=== PATIENT | female | born 1930 | race Caucasian/White ===

== ENCOUNTER 2016-08-13 00:19 | Emergency (ER) | payer BC, OTHER ==
[~2016-08-13] VITALS: Ht 172.7 cm; Wt 79.0 kg
[2016-08-13] MEDS ORDERED: LASIX40 MG PO (01:41)
[2016-08-13] MEDS ORDERED: IMDUR30 MG PO (01:41)
[2016-08-13] MEDS ORDERED: HYDRALAZINE HCL25 MG PO (01:41)
[2016-08-13] MEDS ORDERED: PRAVASTATIN SOD40 MG PO (01:41)
[2016-08-13] MEDS ORDERED: PLAVIX75 MG PO (01:41)
[2016-08-13 01:42] LABS: ADD MIUA? YES; BILIRUBIN NEGATIVE; BLOOD NEGATIVE; COLOR YELLOW ((YELLOW)); GLUCOSE (STRIP) NEGATIVE; KETONES NEGATIVE; LEUKOCYTES MODERATE; NITRITE POSITIVE; PH, URINE 6.5 (5-8); PROTEIN (STRIP) NEGATIVE; UROBILINOGEN 0.2 MG/DL (0.2-1.0)
[2016-08-13] MEDS ORDERED: LEVO-T100 MCG PO (01:42)
[2016-08-13] MEDS ORDERED: COREG25 M1 PO (01:42)
[2016-08-13] MEDS ORDERED: LEVO-T125 MCG PO (01:43)
[2016-08-13] MEDS ORDERED: CALCIUM 500 +1 EAC4 PO (01:44)
[2016-08-13] MEDS ORDERED: INDERAL LA120 MG PO (01:44)
[2016-08-13] MEDS ORDERED: MONOPRIL HCT PO (01:45)
[2016-08-13] MEDS ORDERED: CARDIZEM CD240 MG PO (01:45)
[2016-08-13] MEDS ORDERED: ARICEPT5 MG PO (01:45)
[2016-08-13] MEDS ORDERED: ASPIRIN81 M2 PO (01:45)
[2016-08-13 02:14] LABS: RED BLOOD CELLS NONE SEEN /HPF (0-5)
[2016-08-13 02:15] LABS: BACTERIA 4+; CASTS NONE SEEN /LPF; CRYSTALS NONE SEEN; EPITHELIAL CELLS RARE; MUCUS NONE SEEN; UCUL ADDED? YES
[2016-08-13] MEDS ORDERED: CIPRO500 MG PO (02:47)
[2016-08-13 03:50] VITALS: BP 140/50
== END 2016-08-13 03:52 | disposition home or self-care (01) ==
LOC: EME 00:19
PROVIDERS: Emergency Medicine
DX: N30.90 Cystitis, unspecified without hematuria (principal); Z91.81 History of falling; R42 Dizziness and giddiness; M79.604 Pain in right leg; F03.90 Unspecified dementia, unspecified severity, without behavioral disturbance, psychotic disturbance, mood disturbance, and anxiety; I10 Essential (primary) hypertension; E78.5 Hyperlipidemia, unspecified; E03.9 Hypothyroidism, unspecified; Z79.02 Long term (current) use of antithrombotics/antiplatelets; Z79.82 Long term (current) use of aspirin
CPT/HCPCS: 70450; 72125; 81003; 87077; 87086; 87186; 93005; 99281; 99284

== ENCOUNTER 2016-08-20 13:13 | Inpatient (IN) | payer BC, OTHER ==
[~2016-08-20] VITALS: Wt 81.9 kg
[~2016-08-20 13:13] MED LIST: ARICEPT5 MG PO; ASPIRIN81 M2 PO; CALCIUM 500 +1 EAC4 PO; CARDIZEM CD240 MG PO; CIPRO500 MG PO; COREG25 M1 PO; HYDRALAZINE HCL25 MG PO; IMDUR30 MG PO; INDERAL LA120 MG PO; LASIX40 MG PO; LEVO-T100 MCG PO; LEVO-T125 MCG PO; MONOPRIL HCT PO; PLAVIX75 MG PO; PRAVASTATIN SOD40 MG PO
[2016-08-20] MEDS ORDERED: HYDRALAZINE HCL25 MG PO (13:35)
[2016-08-20 14:28] LABS: HEMATOCRIT 31.7 % (36.0-46.0); MCH 30.5 PG (29.0-34.0); MCHC 33.4 G/DL (30.0-36.0); MCV 91.4 FL (83-99); MEAN PLAT.VOLUME 9.7 uM^3 (9.5-12.4); PLATELET COUNT 372 K/uL (156-360); RBC DIS.WIDTH-CV 12.4 % (11.8-14.6); RBC DIS.WIDTH-SD 40.7 % (39-53); RED BLOOD COUNT 3.47 M/uL (3.80-5.20); WHITE BLOOD COUNT 11.5 K/uL (4.1-10.2)
[2016-08-20 14:36] LABS: CHLORIDE 94 mEq/L (99-109); POTASSIUM 3.5 mEq/L (3.7-5.4); SODIUM 136 mEq/L (136-147)
[2016-08-20 14:38] LABS: GLUCOSE 111 mg/dL (70-99); INTER. NORMALIZED RATIO 1.1; PROTHROMBIN TIME 11.6 (9.2-11.2); PTT 24.6 (25-32)
[2016-08-20 14:39] LABS: ANION GAP 17 MEQ/L (2-14)
[2016-08-20 14:42] LABS: GFR ESTIMATE (CALCULATED) 22 mL/min/; UREA NITROGEN (BUN) 51 mg/dL (9-23)
[2016-08-20] MEDS ORDERED: CALCIUM 500 +1 EAC4 PO (17:30)
[2016-08-20] MEDS ORDERED: ARICEPT5 MG PO (17:36)
[2016-08-20] MEDS ORDERED: CIPRO500 MG PO (17:37)
[2016-08-20 21:01] VITALS: BP 129/40
[2016-08-20 21:47] VITALS: BP 160/67
[2016-08-20 22:47] VITALS: BP 160/67
[2016-08-21 07:05] LABS: ANION GAP 14 MEQ/L (2-14); CHLORIDE 97 MEQ/L (99-109); POTASSIUM 3.3 MEQ/L (3.7-5.4); SAMPLE HEMOLYSIS CHECK 0; SAMPLE ICTERIC CHECK 0; SAMPLE LIPEMIA CHECK 0; SODIUM 136 MEQ/L (136-147)
[2016-08-21 07:11] LABS: GFR ESTIMATE (CALCULATED) 25 mL/min/; UREA NITROGEN (BUN) 47 mg/dL (9-23)
[2016-08-21 07:28] LABS: HEMATOCRIT 28.3 % (36.0-46.0); MCHC 33.6 G/DL (30.0-36.0); MCV 95.3 FL (83-99); MEAN PLAT.VOLUME 10.9 uM^3 (9.5-12.4); PLATELET COUNT 329 K/uL (156-360); RBC DIS.WIDTH-SD 44.6 % (39-53); RED BLOOD COUNT 2.97 M/uL (3.80-5.20)
[2016-08-21 07:29] VITALS: BP 150/70
[2016-08-21 07:29] LABS: GLUCOSE 80 mg/dL (70-99)
[2016-08-21 15:32] VITALS: BP 163/72
[2016-08-22 07:00] VITALS: BP 150/59
[2016-08-22 07:09] LABS: RED BLOOD COUNT 3.04 M/uL (3.80-5.20); WHITE BLOOD COUNT 7.6 K/uL (4.1-10.2)
[2016-08-22 07:10] LABS: BASOPHIL COUNT 0.1 K/uL (0-0.1); EOSINOPHIL (%) 3.3 % (0-5); EOSINOPHIL COUNT 0.3 K/uL (0-0.3); IMMATURE GRANULOCYTE (%) 0.7 % (0.0-0.7); IMMATURE GRANULOCYTE COUNT 0.1 K/uL; LYMPHOCYTE COUNT 1.1 K/uL (1.0-2.8); MCH 31.6 PG (29.0-34.0); MCHC 33.1 G/DL (30.0-36.0); MCV 95.4 FL (83-99); MEAN PLAT.VOLUME 9.9 uM^3 (9.5-12.4); MONOCYTE (%) 10.1 % (3-12); MONOCYTE COUNT 0.8 K/uL (0-0.8); NEUTROPHIL (%) 70.3 % (45-76); NEUTROPHIL COUNT 5.4 K/uL (1.8-6.4); PLATELET COUNT 335 K/uL (156-360); RBC DIS.WIDTH-CV 13.1 % (11.8-14.6); RBC DIS.WIDTH-SD 45.4 % (39-53)
[2016-08-22 07:40] LABS: ANION GAP 10 MEQ/L (2-14); CHLORIDE 99 MEQ/L (99-109); GFR ESTIMATE (CALCULATED) 28 mL/min/; POTASSIUM 3.6 MEQ/L (3.7-5.4); SAMPLE HEMOLYSIS CHECK 1; SAMPLE ICTERIC CHECK 0; SAMPLE LIPEMIA CHECK 0; SODIUM 138 MEQ/L (136-147); UREA NITROGEN (BUN) 41 mg/dL (9-23)
[2016-08-22 07:44] LABS: GLUCOSE 105 mg/dL (70-99)
[2016-08-22 12:00] VITALS: BP 135/92
[2016-08-22 16:00] VITALS: BP 121/75; BP 141/67
[2016-08-22 22:32] VITALS: BP 131/63
[2016-08-23 08:18] VITALS: BP 135/72
[2016-08-23 09:29] LABS: IRON 18 MCG/DL (35-150)
[2016-08-23 10:11] LABS: FERRITIN 520 NG/ML (10-291)
[2016-08-23 22:06] VITALS: BP 146/65
[2016-08-24 03:07] VITALS: BP 158/65
[2016-08-24 07:33] VITALS: BP 137/52
[2016-08-24 16:35] VITALS: BP 130/60
[2016-08-24 22:48] VITALS: BP 116/56
[2016-08-25 07:35] VITALS: BP 130/60
[2016-08-25 16:34] VITALS: BP 105/65
[2016-08-25 20:44] VITALS: BP 135/54
[2016-08-25 23:10] VITALS: BP 125/55
[2016-08-26 08:42] VITALS: BP 177/90
[2016-08-26] MEDS ORDERED: LASIX20 MG PO (15:27)
[2016-08-26] MEDS ORDERED: IMDUR30 MG PO (15:27)
[2016-08-26 17:41] VITALS: BP 141/58
== END 2016-08-26 17:45 | disposition home or self-care (01) | DRG 683 ==
LOC: EME → EDBD 13:13 → EME 13:13 → 5EAST 17:00 → EDOF 17:00 → 5EAST 21:37
PROVIDERS: Emergency Medicine; Internal Medicine
DX: N18.9 Chronic kidney disease, unspecified (principal); I50.20 Unspecified systolic (congestive) heart failure; R53.1 Weakness; F02.80 Dementia in other diseases classified elsewhere, unspecified severity, without behavioral disturbance, psychotic disturbance, mood disturbance, and anxiety; W19.XXXD Unspecified fall, subsequent encounter; G30.9 Alzheimer's disease, unspecified; I25.10 Atherosclerotic heart disease of native coronary artery without angina pectoris; E03.9 Hypothyroidism, unspecified; D63.1 Anemia in chronic kidney disease; M85.80 Other specified disorders of bone density and structure, unspecified site; R00.8 Other abnormalities of heart beat; M17.12 Unilateral primary osteoarthritis, left knee; M16.12 Unilateral primary osteoarthritis, left hip; M72.2 Plantar fascial fibromatosis; Z91.81 History of falling; Z95.1 Presence of aortocoronary bypass graft
CPT/HCPCS: 70450; 72192; 73502; 73552; 73590; 80048; 82306; 82607; 82728; 82746; 83540; 84466; 85025; 85027; 85610; 85730; 93005; 93306; 94799; 97530 GP; 99281; 99284; J0881; J1650; J1756; J7030; J7050

== ENCOUNTER 2016-10-28 14:12 | Emergency (ER) | payer OTHER, BC ==
[~2016-10-28] VITALS: Ht 167.6 cm; Wt 100.0 kg
[~2016-10-28 14:12] MED LIST changes: +LASIX20 MG PO
[2016-10-28] MEDS ORDERED: KEFLEX500 MG PO (17:50)
[2016-10-28 19:13] VITALS: BP 172/71
== END 2016-10-28 19:23 | disposition home or self-care (01) ==
LOC: EME 14:12
DX: L03.116 Cellulitis of left lower limb (principal); E11.9 Type 2 diabetes mellitus without complications; I10 Essential (primary) hypertension; E03.9 Hypothyroidism, unspecified; Z96.651 Presence of right artificial knee joint; Z96.652 Presence of left artificial knee joint; F03.90 Unspecified dementia, unspecified severity, without behavioral disturbance, psychotic disturbance, mood disturbance, and anxiety; Z95.5 Presence of coronary angioplasty implant and graft; I50.9 Heart failure, unspecified
CPT/HCPCS: 73590; 93971; 99281; 99284

== ENCOUNTER 2016-12-08 00:13 | Inpatient (IN) | payer BC ==
[~2016-12-08] VITALS: Ht 165.1 cm; Wt 78.7 kg
[~2016-12-08 00:13] MED LIST changes: +KEFLEX500 MG PO
[2016-12-08 01:15] LABS: BASOPHIL COUNT 0.1 K/uL (0-0.1); EOSINOPHIL (%) 1.1 % (0-5); EOSINOPHIL COUNT 0.2 K/uL (0-0.3); HEMATOCRIT 29.6 % (36.0-46.0); IMMATURE GRANULOCYTE (%) 0.5 % (0.0-0.7); IMMATURE GRANULOCYTE COUNT 0.1 K/uL; INSTRUMENT ABS NEUTROPHIL CT 11.5 K/uL; LYMPHOCYTE COUNT 1.3 K/uL (1.0-2.8); MCH 29.7 PG (29.0-34.0); MCHC 30.7 G/DL (30.0-36.0); MCV 96.7 FL (83-99); MEAN PLAT.VOLUME 9.5 uM^3 (9.5-12.4); MONOCYTE (%) 11.7 % (3-12); MONOCYTE COUNT 1.7 K/uL (0-0.8); NEUTROPHIL (%) 77.4 % (45-76); NEUTROPHIL COUNT 11.5 K/uL (1.8-6.4); PLATELET COUNT 280 K/uL (156-360); RBC DIS.WIDTH-CV 14.6 % (11.8-14.6); RBC DIS.WIDTH-SD 51.5 % (39-53); RED BLOOD COUNT 3.06 M/uL (3.80-5.20); WHITE BLOOD COUNT 14.9 K/uL (4.1-10.2)
[2016-12-08 01:24] LABS: CHLORIDE 102 mEq/L (99-109); POTASSIUM 4.4 mEq/L (3.7-5.4); SODIUM 138 mEq/L (136-147)
[2016-12-08 01:26] LABS: GLUCOSE 125 mg/dL (70-99)
[2016-12-08 01:27] LABS: ANION GAP 11 MEQ/L (2-14)
[2016-12-08 01:28] LABS: TOTAL BILIRUBIN 0.4 mg/dL (0.0-1.0)
[2016-12-08 01:30] LABS: ALKALINE PHOSPHATASE 71 IU/L (3-129); GFR ESTIMATE (CALCULATED) 28 mL/min/
[2016-12-08 01:31] LABS: UREA NITROGEN (BUN) 34 mg/dL (9-23)
[2016-12-08 01:33] LABS: LIPASE 15 U/L (1.0-51.0)
[2016-12-08 01:39] LABS: TROP-I INTERPRETATION NEGATIVE; TROPONIN-I 0.12 ng/mL (0.0-0.30)
[2016-12-08 02:32] LABS: ADD MIUA? YES; BILIRUBIN NEGATIVE; BLOOD MODERATE; COLOR YELLOW ((YELLOW)); GLUCOSE (STRIP) NEGATIVE; KETONES NEGATIVE; LEUKOCYTES LARGE; NITRITE POSITIVE; PROTEIN (STRIP) 100; SPECIFIC GRAVITY 1.019 (1.000-1.030); UROBILINOGEN 0.2 MG/DL (0.2-1.0)
[2016-12-08 03:01] LABS: EPITHELIAL CELLS 1+ /HPF; RED BLOOD CELLS 30-40 /HPF (0-5); WHITE BLOOD CELLS TNTC /HPF (0-5)
[2016-12-08 03:02] LABS: BACTERIA 3+ /HPF; CASTS PRESENT /LPF; CRYSTALS PRESENT; HYALINE CASTS 0-5 /LPF; MUCUS NONE SEEN /LPF; UCUL ADDED? YES
[2016-12-08 04:20] VITALS: BP 184/73
[2016-12-08 08:07] VITALS: BP 150/63
[2016-12-08] MEDS ORDERED: DULCOLAX10 MG PR (12:05)
[2016-12-08] MEDS ORDERED: COMPAZINE10 MG PO (12:31)
[2016-12-08] MEDS ORDERED: MORPHINE CON20 MG/M1 PO ×2 (12:35→13:19)
[2016-12-08] MEDS ORDERED: ATIVAN0.5 MG PO (12:41)
[2016-12-08] MEDS ORDERED: LEVSIN-SL0.125 MG SL (12:47)
[2016-12-08] MEDS ORDERED: HALOPERIDOL2 MG/1 ML PO (12:57)
[2016-12-08] MEDS ORDERED: ACETAMINOPHEN650 M4 PR (13:00)
[2016-12-08] MEDS ORDERED: ACETAMINOPHEN325 M1 PO ×2 (13:03→13:09)
[2016-12-08] MEDS ORDERED: FEVERALL650 M1 PR (13:16)
[2016-12-08 23:31] VITALS: BP 136/72
[2016-12-09 07:09] LABS: HEMATOCRIT 26.4 % (36.0-46.0); MCH 28.6 PG (29.0-34.0); MCHC 29.2 G/DL (30.0-36.0); MCV 98.1 FL (83-99); MEAN PLAT.VOLUME 10.2 uM^3 (9.5-12.4); PLATELET COUNT 238 K/uL (156-360); RBC DIS.WIDTH-CV 14.7 % (11.8-14.6); RBC DIS.WIDTH-SD 52.8 % (39-53); RED BLOOD COUNT 2.69 M/uL (3.80-5.20); WHITE BLOOD COUNT 18.7 K/uL (4.1-10.2)
[2016-12-09 07:36] LABS: ALKALINE PHOSPHATASE 68 IU/L (3-129); ANION GAP 13 MEQ/L (2-14); CHLORIDE 104 MEQ/L (99-109); GFR ESTIMATE (CALCULATED) 32 mL/min/; GLUCOSE 100 mg/dL (70-99); POTASSIUM 4.1 MEQ/L (3.7-5.4); SAMPLE HEMOLYSIS CHECK 0; SAMPLE ICTERIC CHECK 0; SAMPLE LIPEMIA CHECK 0; SODIUM 137 MEQ/L (136-147); TOTAL BILIRUBIN 0.5 MG/DL (0.0-1.0); UREA NITROGEN (BUN) 32 mg/dL (9-23)
[2016-12-09 09:00] VITALS: BP 147/65
[2016-12-09 16:15] VITALS: BP 125/60
[2016-12-09] MEDS ORDERED: FUROSEMIDE20 MG PO (18:09)
[2016-12-09 23:42] VITALS: BP 137/58
[2016-12-10 07:00] LABS: HEMATOCRIT 25.6 % (36.0-46.0); MCH 29.4 PG (29.0-34.0); MCHC 30.1 G/DL (30.0-36.0); MCV 97.7 FL (83-99); MEAN PLAT.VOLUME 10.5 uM^3 (9.5-12.4); PLATELET COUNT 249 K/uL (156-360); RBC DIS.WIDTH-CV 14.5 % (11.8-14.6); RBC DIS.WIDTH-SD 52.1 % (39-53); RED BLOOD COUNT 2.62 M/uL (3.80-5.20); WHITE BLOOD COUNT 14.7 K/uL (4.1-10.2)
[2016-12-10 07:10] VITALS: BP 116/53
[2016-12-10 07:30] LABS: ALKALINE PHOSPHATASE 73 IU/L (3-129); ANION GAP 14 MEQ/L (2-14); CHLORIDE 105 MEQ/L (99-109); GFR ESTIMATE (CALCULATED) 28 mL/min/; GLUCOSE 120 mg/dL (70-99); POTASSIUM 4.1 MEQ/L (3.7-5.4); SAMPLE HEMOLYSIS CHECK 0; SAMPLE ICTERIC CHECK 0; SAMPLE LIPEMIA CHECK 0; SODIUM 139 MEQ/L (136-147); TOTAL BILIRUBIN 0.4 MG/DL (0.0-1.0); UREA NITROGEN (BUN) 35 mg/dL (9-23)
[2016-12-10 16:30] VITALS: BP 131/56
[2016-12-10 23:26] VITALS: BP 136/62
[2016-12-11 08:17] VITALS: BP 131/60
[2016-12-11 16:00] VITALS: BP 153/66
[2016-12-11 22:38] VITALS: BP 137/64
[2016-12-12 07:29] VITALS: BP 129/62
[2016-12-12 15:29] VITALS: BP 139/66
[2016-12-12 23:35] VITALS: BP 134/53
[2016-12-13 07:45] VITALS: BP 132/66
[2016-12-13 11:06] VITALS: BP 130/62
[2016-12-13 21:45] VITALS: BP 167/69
[2016-12-13 23:33] VITALS: BP 145/62
[2016-12-14 07:18] VITALS: BP 144/67
[2016-12-14 10:20] LABS: HEMATOCRIT 27.5 % (36.0-46.0); MCH 29.3 PG (29.0-34.0); MCHC 30.2 G/DL (30.0-36.0); MCV 97.2 FL (83-99); MEAN PLAT.VOLUME 10.2 uM^3 (9.5-12.4); PLATELET COUNT 410 K/uL (156-360); RBC DIS.WIDTH-CV 14.3 % (11.8-14.6); RBC DIS.WIDTH-SD 50.5 % (39-53); RED BLOOD COUNT 2.83 M/uL (3.80-5.20); WHITE BLOOD COUNT 12.2 K/uL (4.1-10.2)
[2016-12-14 10:42] LABS: ALKALINE PHOSPHATASE 86 IU/L (3-129); ANION GAP 12 MEQ/L (2-14); CHLORIDE 106 MEQ/L (99-109); GFR ESTIMATE (CALCULATED) 35 mL/min/; GLUCOSE 227 mg/dL (70-99); POTASSIUM 4.7 MEQ/L (3.7-5.4); SAMPLE HEMOLYSIS CHECK 1; SAMPLE ICTERIC CHECK 0; SAMPLE LIPEMIA CHECK 0; SODIUM 139 MEQ/L (136-147); TOTAL BILIRUBIN 0.3 MG/DL (0.0-1.0); UREA NITROGEN (BUN) 33 mg/dL (9-23)
[2016-12-14 16:49] VITALS: BP 139/60
[2016-12-14 23:29] VITALS: BP 143/88
[2016-12-15 07:18] VITALS: BP 191/83
[2016-12-15 23:46] VITALS: BP 138/69
[2016-12-16 06:29] LABS: EOSINOPHIL (%) 0 % (0-5); HEMATOCRIT 25.2 % (36.0-46.0); IMMATURE GRANULOCYTE COUNT 0.7 K/uL; INSTRUMENT ABS NEUTROPHIL CT 12.6 K/uL; LYMPHOCYTE COUNT 0.7 K/uL (1.0-2.8); MCH 29.7 PG (29.0-34.0); MCHC 30.2 G/DL (30.0-36.0); MCV 98.4 FL (83-99); MONOCYTE (%) 3.6 % (3-12); MONOCYTE COUNT 0.5 K/uL (0-0.8); NEUTROPHIL (%) 86.6 % (45-76); NEUTROPHIL COUNT 12.6 K/uL (1.8-6.4); NRBC (%) 0.3 /100 WBC (0-0); PLATELET COUNT 442 K/uL (156-360); RBC DIS.WIDTH-CV 14.6 % (11.8-14.6); RBC DIS.WIDTH-SD 52.3 % (39-53); RED BLOOD COUNT 2.56 M/uL (3.80-5.20); WHITE BLOOD COUNT 14.5 K/uL (4.1-10.2)
[2016-12-16 06:53] LABS: ANION GAP 9 MEQ/L (2-14); CHLORIDE 101 MEQ/L (99-109); GFR ESTIMATE (CALCULATED) 27 mL/min/; GLUCOSE 173 mg/dL (70-99); POTASSIUM 5.1 MEQ/L (3.7-5.4); SAMPLE HEMOLYSIS CHECK 0; SAMPLE ICTERIC CHECK 0; SAMPLE LIPEMIA CHECK 0; SODIUM 135 MEQ/L (136-147); UREA NITROGEN (BUN) 49 mg/dL (9-23)
[2016-12-16 07:16] VITALS: BP 138/78
[2016-12-16] MEDS ORDERED: AUGMENTIN875 MG PO (08:34)
[2016-12-16 13:04] VITALS: BP 148/69
== END 2016-12-16 13:22 | disposition home or self-care (01) | DRG 871 ==
LOC: EME → EDBD 00:13 → EME 00:13 → 5EAST 02:20 → EDOF 02:20 → 5EAST 04:01
PROVIDERS: Emergency Medicine; Internal Medicine
DX: A41.9 Sepsis, unspecified organism (principal); G93.41 Metabolic encephalopathy; J18.9 Pneumonia, unspecified organism; D63.1 Anemia in chronic kidney disease; N18.3 Chronic kidney disease, stage 3 (moderate); N39.0 Urinary tract infection, site not specified; G30.9 Alzheimer's disease, unspecified; F02.80 Dementia in other diseases classified elsewhere, unspecified severity, without behavioral disturbance, psychotic disturbance, mood disturbance, and anxiety; Z66 Do not resuscitate; Z51.5 Encounter for palliative care; I12.9 Hypertensive chronic kidney disease with stage 1 through stage 4 chronic kidney disease, or unspecified chronic kidney disease; E03.9 Hypothyroidism, unspecified; I25.10 Atherosclerotic heart disease of native coronary artery without angina pectoris
CPT/HCPCS: 71010; 80048; 80053; 80202; 81003; 82948; 83605; 83690; 84443; 84484; 85025; 85027; 87040; 87086; 93005; 94799; 99281; 99285; J0456; J0696; J1630; J2543; J2920; J3370; J7050

== ENCOUNTER 2016-12-20 11:30 | Emergency (ER) | payer OTHER, BC ==
[~2016-12-20] VITALS: Ht 160 cm; Wt 98.0 kg
[~2016-12-20 11:30] MED LIST changes: +ACETAMINOPHEN325 M1 PO; +ACETAMINOPHEN650 M4 PR; +ATIVAN0.5 MG PO; +AUGMENTIN875 MG PO; +COMPAZINE10 MG PO; +DULCOLAX10 MG PR; +FEVERALL650 M1 PR; +FUROSEMIDE20 MG PO; +HALOPERIDOL2 MG/1 ML PO; +LEVSIN-SL0.125 MG SL; +MORPHINE CON20 MG/M1 PO
[2016-12-20 12:45] LABS: EOSINOPHIL (%) 3.6 % (0-5); EOSINOPHIL COUNT 0.6 K/uL (0-0.3); HEMATOCRIT 28.7 % (36.0-46.0); IMMATURE GRANULOCYTE COUNT 0.3 K/uL; INSTRUMENT ABS NEUTROPHIL CT 13.4 K/uL; LYMPHOCYTE COUNT 1.2 K/uL (1.0-2.8); MCH 29.4 PG (29.0-34.0); MEAN PLAT.VOLUME 10.2 uM^3 (9.5-12.4); MONOCYTE (%) 6.6 % (3-12); MONOCYTE COUNT 1.1 K/uL (0-0.8); NEUTROPHIL (%) 80.4 % (45-76); NEUTROPHIL COUNT 13.4 K/uL (1.8-6.4); PLATELET COUNT 341 K/uL (156-360); RBC DIS.WIDTH-SD 53.1 % (39-53); RED BLOOD COUNT 2.93 M/uL (3.80-5.20); WHITE BLOOD COUNT 16.6 K/uL (4.1-10.2)
[2016-12-20 13:17] LABS: CHLORIDE 103 mEq/L (99-109); POTASSIUM 4.9 mEq/L (3.7-5.4); SODIUM 139 mEq/L (136-147)
[2016-12-20 13:18] LABS: GLUCOSE 102 mg/dL (70-99)
[2016-12-20 13:20] LABS: ANION GAP 9 MEQ/L (2-14)
[2016-12-20 13:22] LABS: GFR ESTIMATE (CALCULATED) 35 mL/min/
[2016-12-20 13:23] LABS: UREA NITROGEN (BUN) 37 mg/dL (9-23)
[2016-12-20 13:31] LABS: TROP-I INTERPRETATION NEGATIVE; TROPONIN-I 0.06 ng/mL (0.0-0.30)
[2016-12-20 14:59] VITALS: BP 140/62
== END 2016-12-20 15:00 | disposition home or self-care (01) ==
LOC: EME → EDBD 11:30 → EME 15:00
PROVIDERS: Emergency Medicine
DX: J18.9 Pneumonia, unspecified organism (principal); E11.9 Type 2 diabetes mellitus without complications; E03.9 Hypothyroidism, unspecified; I13.0 Hypertensive heart and chronic kidney disease with heart failure and stage 1 through stage 4 chronic kidney disease, or unspecified chronic kidney disease; N18.9 Chronic kidney disease, unspecified; I50.9 Heart failure, unspecified; Z91.19 Patient's noncompliance with other medical treatment and regimen; Z99.81 Dependence on supplemental oxygen; Z66 Do not resuscitate; Z95.1 Presence of aortocoronary bypass graft; Z96.653 Presence of artificial knee joint, bilateral
CPT/HCPCS: 71010; 80048; 84484; 85025; 93005; 99281; 99284